=== PATIENT | male | born 1975 | race American Indian/Alaskan Native ===

== ENCOUNTER 2016-12-28 17:41 | Emergency (ER) | payer SELFPAY ==
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
[2016-12-28] MEDS ORDERED: Sodium Chloride 0.9% 10 ML Syringe FLUSH PRN (18:39)
[2016-12-28] MEDS ORDERED: Diphtheria,Pertussis(Acell),Tetanus Vaccine 0.5 ML SDV IM ONE (18:40)
[2016-12-28 18:43] LABS: CHLORIDE,CL 93 mmol/L (101-111); SODIUM,NA 129 mmol/L (135-145)
[2016-12-28] MEDS ORDERED: Sodium Chloride 0.9% 1,000 ML IV SCH (18:45)
[2016-12-28 19:01] VITALS: BP 122/82
== END 2016-12-28 19:44 ==
LOC: DL.ED 17:41
DX: S06.6X9A Traumatic subarachnoid hemorrhage with loss of consciousness of unspecified duration, initial encounter (principal); S02.0XXB Fracture of vault of skull, initial encounter for open fracture; S00.03XA Contusion of scalp, initial encounter; S60.221A Contusion of right hand, initial encounter; F10.10 Alcohol abuse, uncomplicated; F17.200 Nicotine dependence, unspecified, uncomplicated; Y04.0XXA Assault by unarmed brawl or fight, initial encounter; Z23 Encounter for immunization
CPT/HCPCS: 36415; 70450; 73130; 80053; 83615; 85025; 85610; 85730; 90471; 90715; 96365; 99285; G0480; J7030; J7050; 99284

== ENCOUNTER 2016-12-31 05:03 | Emergency (ER) | payer SELFPAY ==
[~2016-12-31 05:03] MED LIST: LORazepam 2 MG/ML Syringe IVPUSH ONE
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
[2016-12-31 05:34] LABS: CHLORIDE,CL 95 mmol/L (101-111); SODIUM,NA 129 mmol/L (135-145)
[2016-12-31 05:38] VITALS: BP 120/85
--- NOTE | 2017-02-07 23:55 | EKG ---
12/31/2016 - [facility] - EKG is sinus rhythm with a rate of 102, normal FL interval, normal axis. There is a nonspecific intraventricular conduction delay. EKG otherwise is within normal limits. [facility] /[id number]
== END 2016-12-31 06:34 ==
LOC: DL.ED 05:03
DX: G81.91 Hemiplegia, unspecified affecting right dominant side (principal); F17.200 Nicotine dependence, unspecified, uncomplicated
CPT/HCPCS: 36415; 70450; 71010; 80053; 80185; 85025; 93005; 96374; 99285; G0480; J2060; 93010

== ENCOUNTER 2020-06-06 16:10 | Emergency (ER) | payer OTHER ==
[2020-06-06] MEDS ORDERED: Propofol 1,000 MG/100 ML SDV IV ONE (16:11)
[2020-06-06 16:42] LABS: PTT,PARTIAL THROMBOPLSTIN TIME 30.4 SEC (22.0-34.0)
[2020-06-06] MEDS ORDERED: levETIRAcetam in NaCl (iso-os) 1,000 MG in Premix Bag 1 BAG IV ONE ×4 (16:50→16:51)
[2020-06-06] MEDS ORDERED: Piperacillin/Tazobactam 4.5 GM in Sodium Chloride 0.9% 100 ML IV ONE (16:51)
[2020-06-06 16:55] LABS: ANION GAP 27.4 mEq/L (7-13); CHLORIDE,CL 105 mmol/L (98-107); SODIUM,NA 148 mmol/L (136-145)
--- NOTE | 2020-06-06 16:56 | CR ---
PROCEDURE INFORMATION: Exam: XR Chest, 1 View Exam date and time: 06/06/2020 4:42 PM Age: 44 years old Clinical indication: Other: Tube polacement; Additional info: Tube placement, bagging patient TECHNIQUE: Imaging protocol: XR of the chest Views: 1 view. COMPARISON: CR Chest 1V Frontal 12/31/2016 5:30 AM FINDINGS: Tubes, catheters and devices: Endotracheal tube is present with the tip approximately 3.2 cm above the level of the marco. Nasogastric tube is present. Lungs: Patchy airspace opacities noted within the right middle, right lower and left upper lobes. Pleural space: There is no evidence of pneumothorax. Heart/Mediastinum: The heart demonstrates mild diffuse enlargement. Bones/joints: Unremarkable. IMPRESSION: 1. Endotracheal tube is present with the tip approximately 3.2 cm above the level of the marco. 2. Patchy airspace opacities noted within the right middle, right lower and left upper lobes.
[2020-06-06] MEDS ORDERED: LORazepam 2 MG/ML SDV IVPUSH ONE (17:05)
[2020-06-06] MEDS ORDERED: Midazolam 1 MG/ML 2 ML SDV IVPUSH ONE (17:05)
[2020-06-06] MEDS ORDERED: Flumazenil 0.1 MG/ML 5 ML MDV IVPUSH PRN (17:05)
[2020-06-06 17:06] LABS: BASE EXCESS ARTERIAL -13 mmol/L ((-2)-(+3)); O2 DELIVERY DEVICE VENTILATOR; O2 SATURATION ARTERIAL 91 % (95-100); PCO2 ARTERIAL 62 mmHg (35-45); PO2 ARTERIAL 93 mmHg (70-100)
[2020-06-06 17:13] VITALS: BP 154/79; PULSE 135
--- NOTE | 2020-06-06 17:43 | EDM.PDOC ---
ED HPI GENERAL MEDICAL PROBLEM - General Chief Complaint: Neuro Symptoms/Deficits Stated Complaint: BY AMBULANCE Time Seen by Provider: 06/06/20 16:20 Source of Information: Reports: EMS, EMS Notes Reviewed, Family, RN, RN Notes Reviewed History Limitations: Reports: Altered Mental Status - History of Present Illness INITIAL COMMENTS - FREE TEXT/NARRATIVE: Patient presents to ER per [facility] in status epilepticus. EMS reports the patient was actively seizing when they arrived on scene, has been continuously seizing for 30+ minutes. Initially unknown with the patient's name was. EMS states patient was at a home that was not his. Very little information given from surrounding bystanders. Daughter who presented later states she is unsure if he has been ill recently, although states she lives with him. Patient has a history of a TBI, seizures, alcohol abuse. Patient given Versed and Ativan upon arrival for seizures. Significant amount of secretions, clear with some streaking of blood from the mouth. Patient has a nasal airway and being assisted with bag valve mask upon arrival. Onset: Today, Sudden - Related Data Allergies Allergy/AdvReac Type Severity Reaction Status Date / Time No Known Allergies Allergy Verified 06/19/14 16:59 Home Meds: Home Meds . [No Known Home Meds] 06/19/14 [History] Past Medical History Genitourinary History: Reports: Other (See Below) Neurological History: Reports: Brain Injury, Concussion, Head Trauma, Seizure Psychiatric History: Reports: Addiction (alcohol) Endocrine/Metabolic History: Reports: Other (See Below) Dermatologic History: Reports: Cellulitis (with sepsis) Social & Family History - Family History Family Medical History: Noncontributory - Caffeine Use Caffeine Use: Reports: Coffee, Soda, Tea - Living Situation & Occupation Living situation: Reports: with Significant Other, with Family Occupation: Unemployed ED ROS GENERAL - Review of Systems Review Of Systems: Comprehensive ROS is negative, except as noted in HPI. - Physical Exam Exam: See Below Exam Limited By: Altered Mental Status General Appearance: Obtunded, Severe Distress Eye Exam: Bilateral Eye: PERRL (3 fixed) Ears: Normal External Exam, Hearing Grossly Normal Nose: Normal Inspection Throat/Mouth: Other (Significant amount of clear blood-streaked s putum/secretions from the mouth) Head Exam: Atraumatic, Normocephalic Neck: Normal Inspection, Supple, Non-Tender, Full Range of Motion Respiratory/Chest: Decreased Breath Sounds Cardiovascular: Normal Peripheral Pulses, No Edema, No Gallop, No JVD, No Murmur, No Rub, Tachycardia GI/Abdominal: Soft, No Organomegaly, No Distention, Abnormal Bowel Sounds (Hypoactive) (Male) Exam: Deferred Rectal (Males) Exam: Deferred Neuro Exam (Abbreviated): Unresponsive Back Exam: Normal Inspection, Full Range of Motion Extremities: Normal Inspection Skin Exam: Warm, Normal Color, No Rash, Diaphoretic Course - Vital Signs Last Recorded V/S: Last Vital Signs Temp 102 F H 06/06/20 17:11 Pulse 135 H 06/06/20 17:11 Resp BP 154/79 H 06/06/20 17:11 Pulse Ox 88 L 06/06/20 17:11 - Orders/Labs/Meds Orders: Active Orders 24 hr Category Date Time Status Blood Glucose Check, Bedside [RC] ONETIME Care 06/06/20 16:58 Active CULTURE BLOOD [BC] Stat Lab 06/06/20 16:15 Results flumazeniL [Romazicon] Med 06/06/20 17:05 Active 0.2 mg IVPUSH ASDIRECTED PRN Medication Orders Flumazenil (Romazicon) 0.2 mg IVPUSH ASDIRECTED PRN PRN Reason: Respiratory Depression Labs: Laboratory Tests 06/06/20 06/06/20 06/06/20 Range/Units 16:15 16:15 16:15 WBC 10.5 H (5.0-10.0) 10^3/uL RBC 4.88 (4.6-6.2) 10^6/uL Hgb 16.1 D (14.0-18.0) g/dL Hct 50.6 (40.0-54.0) % MCV 103.7 H D (80-100) fL MCH 33.0 (27.0-34.0) pg MCHC 31.8 L (33.0-35.0) g/dL Plt Count 182 (150-450) 10^3/uL Neut % (Auto) 23.1 L (42.2-75.2) % Lymph % (Auto) 67.6 H (20.5-50.1) % [place] % (Auto) 8.5 H (2-8) % Eos % (Auto) 0.5 L (1.0-3.0) % Baso % (Auto) 0.3 (0.0-1.0) % PT (9.0-12.0) SEC INR (0.9-1.2) APTT (22.0-34.0) SEC D-Dimer, Quantitative (0-400) ng/mL ABG pH (7.35-7.45) ABG pCO2 (35-45) mmHg ABG pO2 (70-100) mmHg ABG HCO3 (22-26) mmol/L ABG O2 Saturation (95-100) % ABG Base Excess ((-2)-(+3)) mmol/L O2 Delivery Device Sodium 148 H (136-145) mmol/L Potassium 4.4 (3.5-5.1) mmol/L Chloride 105 (98-107) mmol/L Carbon Dioxide 20 L (21-32) mmol/L Anion Gap 27.4 H (7-13) mEq/L BUN 9 (7-18) mg/dL Creatinine 1.35 H (0.70-1.30) mg/dL Est Cr Clr Drug Dosing TNP Estimated GFR (MDRD) 57 BUN/Creatinine Ratio 6.7 (No establ ref range) Glucose 244 H (74-99) mg/dL POC Glucose (70-105) mg/dl Lactic Acid 18.9 H* (0.4-2.0) mmol/L Calcium 9.4 (8.5-10.1) mg/dL Total Bilirubin 0.6 (0.2-1.0) mg/dL AST 111 H (15-37) U/L ALT 95 H (16-63) U/L Alkaline Phosphatase 134 H (46-116) U/L Ammonia (11-32) umol/L Troponin I < 0.017 (0.000-0.056) ng/mL B-Natriuretic Peptide 84 (0-100) pg/ml Total Protein 9.9 H (6.4-8.2) g/dL Albumin 4.1 (3.4-5.0) g/dL Globulin 5.8 Albumin/Globulin Ratio 0.71 Amylase 118 H (25-115) U/L Lipase 266 (73-393) U/L Urine Color (YELLOW) Urine Appearance (CLEAR) Urine pH (5.0-9.0) Ur Specific Leiter (1.005-1.030) Urine Protein (NEGATIVE) Urine Glucose (UA) (NEGATIVE) Urine Ketones (NEGATIVE) Urine Occult Blood (NEGATIVE) Urine Nitrite (NEGATIVE) Urine Bilirubin (NEGATIVE) Urine Urobilinogen (0.2-1.0) mg/dL Ur Leukocyte Esterase (NEGATIVE) U Hyaline Cast (Auto) Urine RBC /HPF Urine WBC (0-5/HPF) /HPF Ur Epithelial Cells (NOT SEEN) /HPF Amorphous Sediment (NOT SEEN) /HPF Urine Bacteria (0-FEW/HPF) /HPF Fine Granular Casts (NOT SEEN) /LPF Urine Mucus (NOT SEEN) /LPF Urine Opiates Screen (NEGATIVE) Ur Oxycodone Screen (NEGATIVE) Urine Methadone Screen (NEGATIVE) Ur Barbiturates Screen (NEGATIVE) U Tricyclic Antidepress (NEGATIVE) Ur Phencyclidine Scrn (NEGATIVE) Ur Amphetamine Screen (NEGATIVE) U Methamphetamines Scrn (NEGATIVE) Urine MDMA Screen (NEGATIVE) U Benzodiazepines Scrn (NEGATIVE) Urine Cocaine Screen (NEGATIVE) U Marijuana (THC) Screen (NEGATIVE) Ethyl Alcohol (0) mg/dL Ketones Negative SARS CoV-2 RNA Rapid NAIMA (NEGATIVE) 06/06/20 06/06/20 06/06/20 Range/Units 16:15 16:15 16:15 WBC (5.0-10.0) 10^3/uL RBC (4.6-6.2) 10^6/uL Hgb (14.0-18.0) g/dL Hct (40.0-54.0) % MCV (80-100) fL MCH (27.0-34.0) pg MCHC (33.0-35.0) g/dL Plt Count (150-450) 10^3/uL Neut % (Auto) (42.2-75.2) % Lymph % (Auto) (20.5-50.1) % [place] % (Auto) (2-8) % Eos % (Auto) (1.0-3.0) % Baso % (Auto) (0.0-1.0) % PT 11.5 (9.0-12.0) SEC INR 1.2 (0.9-1.2) APTT 30.4 (22.0-34.0) SEC D-Dimer, Quantitative 137 (0-400) ng/mL ABG pH (7.35-7.45) ABG pCO2 (35-45) mmHg ABG pO2 (70-100) mmHg ABG HCO3 (22-26) mmol/L ABG O2 Saturation (95-100) % ABG Base Excess ((-2)-(+3)) mmol/L O2 Delivery Device Sodium (136-145) mmol/L Potassium (3.5-5.1) mmol/L Chloride (98-107) mmol/L Carbon Dioxide (21-32) mmol/L Anion Gap (7-13) mEq/L BUN (7-18) mg/dL Creatinine (0.70-1.30) mg/dL Est Cr Clr Drug Dosing Estimated GFR (MDRD) BUN/Creatinine Ratio (No establ ref range) Glucose (74-99) mg/dL POC Glucose (70-105) mg/dl Lactic Acid (0.4-2.0) mmol/L Calcium (8.5-10.1) mg/dL Total Bilirubin (0.2-1.0) mg/dL AST (15-37) U/L ALT (16-63) U/L Alkaline Phosphatase (46-116) U/L Ammonia 284 H (11-32) umol/L Troponin I (0.000-0.056) ng/mL B-Natriuretic Peptide (0-100) pg/ml Total Protein (6.4-8.2) g/dL Albumin (3.4-5.0) g/dL Globulin Albumin/Globulin Ratio Amylase (25-115) U/L Lipase (73-393) U/L Urine Color (YELLOW) Urine Appearance (CLEAR) Urine pH (5.0-9.0) Ur Specific Leiter (1.005-1.030) Urine Protein (NEGATIVE) Urine Glucose (UA) (NEGATIVE) Urine Ketones (NEGATIVE) Urine Occult Blood (NEGATIVE) Urine Nitrite (NEGATIVE) Urine Bilirubin (NEGATIVE) Urine Urobilinogen (0.2-1.0) mg/dL Ur Leukocyte Esterase (NEGATIVE) U Hyaline Cast (Auto) Urine RBC /HPF Urine WBC (0-5/HPF) /HPF Ur Epithelial Cells (NOT SEEN) /HPF Amorphous Sediment (NOT SEEN) /HPF Urine Bacteria (0-FEW/HPF) /HPF Fine Granular Casts (NOT SEEN) /LPF Urine Mucus (NOT SEEN) /LPF Urine Opiates Screen (NEGATIVE) Ur Oxycodone Screen (NEGATIVE) Urine Methadone Screen (NEGATIVE) Ur Barbiturates Screen (NEGATIVE) U Tricyclic Antidepress (NEGATIVE) Ur Phencyclidine Scrn (NEGATIVE) Ur Amphetamine Screen (NEGATIVE) U Methamphetamines Scrn (NEGATIVE) Urine MDMA Screen (NEGATIVE) U Benzodiazepines Scrn (NEGATIVE) Urine Cocaine Screen (NEGATIVE) U Marijuana (THC) Screen (NEGATIVE) Ethyl Alcohol < 3 (0) mg/dL Ketones SARS CoV-2 RNA Rapid NAIMA (NEGATIVE) 06/06/20 06/06/20 06/06/20 Range/Units 16:23 16:23 16:50 WBC (5.0-10.0) 10^3/uL RBC (4.6-6.2) 10^6/uL Hgb (14.0-18.0) g/dL Hct (40.0-54.0) % MCV (80-100) fL MCH (27.0-34.0) pg MCHC (33.0-35.0) g/dL Plt Count (150-450) 10^3/uL Neut % (Auto) (42.2-75.2) % Lymph % (Auto) (20.5-50.1) % [place] % (Auto) (2-8) % Eos % (Auto) (1.0-3.0) % Baso % (Auto) (0.0-1.0) % PT (9.0-12.0) SEC INR (0.9-1.2) APTT (22.0-34.0) SEC D-Dimer, Quantitative (0-400) ng/mL ABG pH (7.35-7.45) ABG pCO2 (35-45) mmHg ABG pO2 (70-100) mmHg ABG HCO3 (22-26) mmol/L ABG O2 Saturation (95-100) % ABG Base Excess ((-2)-(+3)) mmol/L O2 Delivery Device Sodium (136-145) mmol/L Potassium (3.5-5.1) mmol/L Chloride (98-107) mmol/L Carbon Dioxide (21-32) mmol/L Anion Gap (7-13) mEq/L BUN (7-18) mg/dL Creatinine (0.70-1.30) mg/dL Est Cr Clr Drug Dosing Estimated GFR (MDRD) BUN/Creatinine Ratio (No establ ref range) Glucose (74-99) mg/dL POC Glucose (70-105) mg/dl Lactic Acid (0.4-2.0) mmol/L Calcium (8.5-10.1) mg/dL Total Bilirubin (0.2-1.0) mg/dL AST (15-37) U/L ALT (16-63) U/L Alkaline Phosphatase (46-116) U/L Ammonia (11-32) umol/L Troponin I (0.000-0.056) ng/mL B-Natriuretic Peptide (0-100) pg/ml Total Protein (6.4-8.2) g/dL Albumin (3.4-5.0) g/dL Globulin Albumin/Globulin Ratio Amylase (25-115) U/L Lipase (73-393) U/L Urine Color Yellow (YELLOW) Urine Appearance Slightly cloudy (CLEAR) Urine pH 5.5 (5.0-9.0) Ur Specific Leiter >= 1.030 (1.005-1.030) Urine Protein >=300 H (NEGATIVE) Urine Glucose (UA) Negative (NEGATIVE) Urine Ketones Negative (NEGATIVE) Urine Occult Blood Moderate H (NEGATIVE) Urine Nitrite Negative (NEGATIVE) Urine Bilirubin Negative (NEGATIVE) Urine Urobilinogen 0.2 (0.2-1.0) mg/dL Ur Leukocyte Esterase Negative (NEGATIVE) U Hyaline Cast (Auto) Few Urine RBC 5-10 H /HPF Urine WBC 0-5 (0-5/HPF) /HPF Ur Epithelial Cells Few (NOT SEEN) /HPF Amorphous Sediment Many (NOT SEEN) /HPF Urine Bacteria Rare (0-FEW/HPF) /HPF Fine Granular Casts Moderate H (NOT SEEN) /LPF Urine Mucus Few H (NOT SEEN) /LPF Urine Opiates Screen Negative (NEGATIVE) Ur Oxycodone Screen Negative (NEGATIVE) Urine Methadone Screen Negative (NEGATIVE) Ur Barbiturates Screen Negative (NEGATIVE) U Tricyclic Antidepress Negative (NEGATIVE) Ur Phencyclidine Scrn Negative (NEGATIVE) Ur Amphetamine Screen Negative (NEGATIVE) U Methamphetamines Scrn Negative (NEGATIVE) Urine MDMA Screen Negative (NEGATIVE) U Benzodiazepines Scrn Negative (NEGATIVE) Urine Cocaine Screen Negative (NEGATIVE) U Marijuana (THC) Screen Positive H (NEGATIVE) Ethyl Alcohol (0) mg/dL Ketones SARS CoV-2 RNA Rapid NAIMA Positive H (NEGATIVE) 06/06/20 06/06/20 Range/Units 16:56 17:00 WBC (5.0-10.0) 10^3/uL RBC (4.6-6.2) 10^6/uL Hgb (14.0-18.0) g/dL Hct (40.0-54.0) % MCV (80-100) fL MCH (27.0-34.0) pg MCHC (33.0-35.0) g/dL Plt Count (150-450) 10^3/uL Neut % (Auto) (42.2-75.2) % Lymph % (Auto) (20.5-50.1) % [place] % (Auto) (2-8) % Eos % (Auto) (1.0-3.0) % Baso % (Auto) (0.0-1.0) % PT (9.0-12.0) SEC INR (0.9-1.2) APTT (22.0-34.0) SEC D-Dimer, Quantitative (0-400) ng/mL ABG pH 7.09 L* (7.35-7.45) ABG pCO2 62 H (35-45) mmHg ABG pO2 93 (70-100) mmHg ABG HCO3 18.0 L (22-26) mmol/L ABG O2 Saturation 91 L (95-100) % ABG Base Excess -13 L ((-2)-(+3)) mmol/L O2 Delivery Device Ventilator Sodium (136-145) mmol/L Potassium (3.5-5.1) mmol/L Chloride (98-107) mmol/L Carbon Dioxide (21-32) mmol/L Anion Gap (7-13) mEq/L BUN (7-18) mg/dL Creatinine (0.70-1.30) mg/dL Est Cr Clr Drug Dosing Estimated GFR (MDRD) BUN/Creatinine Ratio (No establ ref range) Glucose (74-99) mg/dL POC Glucose 182 H (70-105) mg/dl Lactic Acid (0.4-2.0) mmol/L Calcium (8.5-10.1) mg/dL Total Bilirubin (0.2-1.0) mg/dL AST (15-37) U/L ALT (16-63) U/L Alkaline Phosphatase (46-116) U/L Ammonia (11-32) umol/L Troponin I (0.000-0.056) ng/mL B-Natriuretic Peptide (0-100) pg/ml Total Protein (6.4-8.2) g/dL Albumin (3.4-5.0) g/dL Globulin Albumin/Globulin Ratio Amylase (25-115) U/L Lipase (73-393) U/L Urine Color (YELLOW) Urine Appearance (CLEAR) Urine pH (5.0-9.0) Ur Specific Leiter (1.005-1.030) Urine Protein (NEGATIVE) Urine Glucose (UA) (NEGATIVE) Urine Ketones (NEGATIVE) Urine Occult Blood (NEGATIVE) Urine Nitrite (NEGATIVE) Urine Bilirubin (NEGATIVE) Urine Urobilinogen (0.2-1.0) mg/dL Ur Leukocyte Esterase (NEGATIVE) U Hyaline Cast (Auto) Urine RBC /HPF Urine WBC (0-5/HPF) /HPF Ur Epithelial Cells (NOT SEEN) /HPF Amorphous Sediment (NOT SEEN) /HPF Urine Bacteria (0-FEW/HPF) /HPF Fine Granular Casts (NOT SEEN) /LPF Urine Mucus (NOT SEEN) /LPF Urine Opiates Screen (NEGATIVE) Ur Oxycodone Screen (NEGATIVE) Urine Methadone Screen (NEGATIVE) Ur Barbiturates Screen (NEGATIVE) U Tricyclic Antidepress (NEGATIVE) Ur Phencyclidine Scrn (NEGATIVE) Ur Amphetamine Screen (NEGATIVE) U Methamphetamines Scrn (NEGATIVE) Urine MDMA Screen (NEGATIVE) U Benzodiazepines Scrn (NEGATIVE) Urine Cocaine Screen (NEGATIVE) U Marijuana (THC) Screen (NEGATIVE) Ethyl Alcohol (0) mg/dL Ketones SARS CoV-2 RNA Rapid NAIMA (NEGATIVE) Meds: Medications Generic Name Dose Route Start Last Admin Trade Name Freq PRN Reason Stop Dose Admin Flumazenil 0.2 mg 06/06/20 17:05 Romazicon IVPUSH ASDIRECTED PRN Respiratory Depression Discontinued Medications Generic Name Dose Route Start Last Admin Trade Name Freq PRN Reason Stop Dose Admin Levetiracetam 1,000 mg/ Premix 200 mls @ 800 mls/hr 06/06/20 16:50 06/06/20 17:04 IV 06/06/20 16:51 800 mls/hr ONETIME ONE Administration Piperacillin Sod/Tazobactam 100 mls @ 200 mls/hr 06/06/20 16:51 06/06/20 17:02 Sod 4.5 gm/ Sodium Chloride IV 06/06/20 17:20 200 mls/hr ONETIME ONE Administration Levetiracetam 1,000 mg/ Premix 200 mls @ 800 mls/hr 06/06/20 16:51 06/06/20 17:23 IV 06/06/20 16:52 800 mls/hr ONETIME ONE Administration Levetiracetam Confirm 06/06/20 17:06 06/06/20 17:24 Levetiracetam In Nacl (Iso-Os) Administered 06/06/20 17:07 Not Given Dose 200 mls @ as directed .ROUTE .STK-MED ONE Lorazepam 2 mg 06/06/20 17:05 06/06/20 16:20 Ativan IVPUSH 06/06/20 17:06 2 mg ONETIME ONE Administration Midazolam HCl 2 mg 06/06/20 17:05 06/06/20 16:20 Versed 1 Mg/Ml IVPUSH 06/06/20 17:06 2 mg ONETIME ONE Administration - Re-Assessments/Exams Free Text/Narrative Re-Assessment/Exam: 06/06/20 18:57 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 Patient case discussed with Dr. Reid at [facility] who agreed to accept the patient for transfer. Patient transferred via [facility]/[employer] flight [employer]. Departure - Departure Time of Disposition: 18:15 Disposition: DC/Tfer to Acute Hospital 02 Condition: Serious Clinical Impression: COVID-19, Seizure - Discharge Information *PRESCRIPTION DRUG MONITORING PROGRAM REVIEWED*: No *COPY OF PRESCRIPTION DRUG MONITORING REPORT IN PATIENT YOMAIRA: No Forms: ED Department Discharge, Interfacility Transfer EMTALA Sepsis Event Note (ED) - Evaluation Sepsis Screening Result: No Definite Risk - Focused Exam Vital Signs: Vital Signs Temp Pulse BP Pulse Ox 06/06/20 17:11 102 F H 135 H 154/79 H 88 L - My Orders Last 24 Hours: My Active Orders 06/06/20 16:15 CULTURE BLOOD [BC] Stat 06/06/20 16:58 Blood Glucose Check, Bedside [RC] ONETIME 06/06/20 17:05 flumazeniL [Romazicon] 0.2 mg IVPUSH ASDIRECTED PRN - Assessment/Plan Last 24 Hours: My Active Orders 06/06/20 16:15 CULTURE BLOOD [BC] Stat 06/06/20 16:58 Blood Glucose Check, Bedside [RC] ONETIME 06/06/20 17:05 flumazeniL [Romazicon] 0.2 mg IVPUSH ASDIRECTED PRN
[2020-06-26 10:40] LABS: ALLEN TEST LR
== END 2020-06-06 17:45 ==
LOC: DL.ED 16:10
DX: G40.909 Epilepsy, unspecified, not intractable, without status epilepticus (principal); U07.1 COVID-19
CPT/HCPCS: 31500; 36415; 36600; 51702; 71045; 80053; 80305; 80307; 81001; 82009; 82140; 82150; 82803; 82962; 83605; 83690; 83880; 84484; 85025; 85379; 85610; 85730; 87040; 87635; 96365; 96375; 96376; 99284; 99285; J1953; J2060; J2250; J2543; J2704; J7050; U0002

== ENCOUNTER 2020-12-11 14:57 | Emergency (ER) | payer MEDICAID ==
[2020-12-11 15:01] VITALS: BP 137/92; PULSE 86
[2020-12-11 16:22] LABS: ANION GAP 11.1 mEq/L (7-13); CHLORIDE,CL 101 mmol/L (98-107); SODIUM,NA 138 mmol/L (136-145)
[2020-12-11 16:26] LABS: ACETAMINOPHEN 0 ug/mL (10-30 (Therapeutic))
--- NOTE | 2020-12-11 16:33 | EDM.PDOC ---
ED HPI GENERAL MEDICAL PROBLEM - General Source of Information: Reports: Patient History Limitations: Reports: No Limitations (patient is alert and oriented x 4 ) - History of Present Illness Onset: Today Location: Reports: Head Improves with: Reports: None Worsens with: Reports: None Context: Reports: Other Associated Symptoms: Reports: Seizure <Ghazal Morgan - Last Filed: 12/11/20 17:13> <DominguezFrancisco Christoph - Last Filed: 12/11/20 18:37> - General Chief Complaint: Neurological Problem Stated Complaint: AMBULANCE Time Seen by Provider: 12/11/20 16:18 - History of Present Illness INITIAL COMMENTS - FREE TEXT/NARRATIVE: Patient is a 45 y.o. male who is brought in the ED by [facility] in status epilepticus. EMS reports c/o of seizure after being called by the patient's family. The patient has no one with him in the ED but is alert and fully oriented x4 on physical exam. The patient reports he was sitting at home watching TV when he felt tingling in his arms "before everything went black." He states he has a history of seizures but is unable to date his late seizure. He takes no medications for seizures and does not follow up with neurology or PCP. The patient denies headache, dizziness, blurred or double vision, muscle weakness, or paraesthesias. He has no cough, SOB, chest pain, abdominal pain, or changes in bowel or urinary habits. He reports alcohol use yesterday and "shared a liter of whiskey with friends." He reports a 10 year pack history and occasional marijuana use. He takes no daily medications. (Ghazal Morgan) - Related Data Allergies Allergy/AdvReac Type Severity Reaction Status Date / Time No Known Allergies Allergy Verified 06/19/14 16:59 Home Meds: Home Meds . [No Known Home Meds] 06/19/14 [History] Past Medical History Genitourinary History: Reports: Other (See Below) Neurological History: Reports: Brain Injury, Concussion, Head Trauma, Seizure Psychiatric History: Reports: Addiction Endocrine/Metabolic History: Reports: Other (See Below) Dermatologic History: Reports: Cellulitis <Ghazal Morgan - Last Filed: 12/11/20 17:13> Social & Family History - Family History Family Medical History: No Pertinent Family History - Tobacco Use Tobacco Use Status *Q: Never Tobacco User - Caffeine Use Caffeine Use: Reports: Coffee, Soda, Tea - Recreational Drug Use Recreational Drug Use: No - Living Situation & Occupation Living situation: Reports: with Significant Other, with Family Occupation: Unemployed <Ghazal Morgan - Last Filed: 12/11/20 17:13> ED ROS GENERAL - Review of Systems Review Of Systems: Comprehensive ROS is negative, except as noted in HPI. <Ghazal Morgan - Last Filed: 12/11/20 17:13> - Physical Exam Exam: See Below Exam Limited By: No Limitations General Appearance: Alert, WD/WN, No Apparent Distress Eye Exam: Bilateral Eye: EOMI, PERRL, Other (scleral icterus ) Nose: Normal Inspection, Normal Mucosa, No Blood Throat/Mouth: Normal Inspection, Normal Lips, Normal Teeth, Normal Gums, Normal Oropharynx, Normal Voice, No Airway Compromise Head Exam: Atraumatic, Normocephalic Neck: Normal Inspection, Supple, Non-Tender, Full Range of Motion Respiratory/Chest: No Respiratory Distress, Lungs Clear, Normal Breath Sounds, No Accessory Muscle Use, Chest Non-Tender Cardiovascular: Normal Peripheral Pulses, Regular Rate, Rhythm, No Edema, No Gallop, No JVD, No Murmur, No Rub GI/Abdominal: Normal Bowel Sounds, Soft, Non-Tender, No Organomegaly, No Disten tion, No Abnormal Bruit, No Mass (Male) Exam: Deferred Rectal (Males) Exam: Deferred Neuro Exam (Abbreviated): Alert, Oriented, CN II-XII Intact, Normal Cognition, Normal Gait, Normal Reflexes, No Motor/Sensory Deficits Extremities: Normal Inspection, Normal Range of Motion, Non-Tender, No Pedal Edema, Normal Capillary Refill Psychiatric: Normal Affect, Normal Mood Skin Exam: Warm, Dry, Intact, Normal Color, No Rash <Ghazal Morgan - Last Filed: 12/11/20 17:13> Course - Vital Signs Last Recorded V/S: Last Vital Signs Temp 37.0 C 12/11/20 14:59 Pulse 86 12/11/20 14:59 Resp 16 12/11/20 14:59 BP 137/92 H 12/11/20 14:59 Pulse Ox 90 L 12/11/20 14:59 - Orders/Labs/Meds Orders: Active Orders 24 hr Category Date Time Status EKG Documentation Completion [RC] STAT Care 12/11/20 15:39 Ordered DRUG SCREEN URINE BIORAD [URCHEM] Stat Lab 12/11/20 15:39 Ordered UA RFX AUGIE AND CULT IF INDIC [URIN] Urgent Lab 12/11/20 15:39 Ordered Labs: Laboratory Tests 12/11/20 12/11/20 12/11/20 Range/Units 15:51 15:51 15:51 WBC 5.5 (5.0-10.0) 10^3/uL RBC 4.41 L (4.6-6.2) 10^6/uL Hgb 14.7 (14.0-18.0) g/dL Hct 41.3 (40.0-54.0) % MCV 93.7 D (80-100) fL MCH 33.3 (27.0-34.0) pg MCHC 35.6 H (33.0-35.0) g/dL Plt Count 92 L D (150-450) 10^3/uL Neut % (Auto) 81.4 H (42.2-75.2) % Lymph % (Auto) 8.5 L (20.5-50.1) % [place] % (Auto) 8.3 H (2-8) % Eos % (Auto) 1.4 (1.0-3.0) % Baso % (Auto) 0.4 (0.0-1.0) % Sodium 138 D (136-145) mmol/L Potassium 4.1 (3.5-5.1) mmol/L Chloride 101 (98-107) mmol/L Carbon Dioxide 30 (21-32) mmol/L Anion Gap 11.1 (7-13) mEq/L BUN 15 (7-18) mg/dL Creatinine 0.96 (0.70-1.30) mg/dL Est Cr Clr Drug Dosing 105.53 mL/min Estimated GFR (MDRD) > 60 BUN/Creatinine Ratio 15.6 (No establ ref range) Glucose 109 H (74-99) mg/dL Calcium 8.6 (8.5-10.1) mg/dL Total Bilirubin 2.1 H (0.2-1.0) mg/dL AST 296 H (15-37) U/L ALT 259 H (16-63) U/L Alkaline Phosphatase 110 (46-116) U/L Troponin I < 0.017 (0.000-0.056) ng/mL Total Protein 8.0 (6.4-8.2) g/dL Albumin 3.4 (3.4-5.0) g/dL Globulin 4.6 Albumin/Globulin Ratio 0.7 Salicylates < 2.8 L (2.8-20(Therapeutic)) mg/dL Acetaminophen 0 L (10-30 (Therapeutic)) ug/mL Ethyl Alcohol < 3 (0) mg/dL Meds: Medications Discontinued Medications Generic Name Dose Route Start Last Admin Trade Name Freq PRN Reason Stop Dose Admin Multivitamins/Minerals 10 ml/ 1,011.2 mls @ 999 mls/hr 12/11/20 16:39 12/11/20 17:07 Folic Acid 1 mg/ Thiamine HCl IV 12/11/20 17:39 999 mls/hr 100 mg/ Lactated Ringer's ONETIME ONE Administration Departure <Ghazal Morgan - Last Filed: 12/11/20 17:13> - Departure Time of Disposition: 18:33 Condition: Fair - Discharge Information *PRESCRIPTION DRUG MONITORING PROGRAM REVIEWED*: Not Applicable *COPY OF PRESCRIPTION DRUG MONITORING REPORT IN PATIENT YOMAIRA: Not Applicable <Francisco Dominguez - Last Filed: 12/11/20 18:37> - Departure Disposition: Home, Self-Care 01 Clinical Impression: Withdrawal seizures Qualifiers: Complication of substance-induced condition: uncomplicated Qualified Code(s): 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 The patient was given a liter of IV fluids with multivitamins while in the ED. The patient was advised to avoid drinking alcohol. If the patient has any additional symptoms or concerns, the patient should either return to the emergency department or visit his primary care facility. Sepsis Event Note (ED) - Evaluation Sepsis Screening Result: No Definite Risk <Ghazal Morgan - Last Filed: 12/11/20 17:13> - Focused Exam Vital Signs: Vital Signs Temp Pulse Resp BP Pulse Ox 12/11/20 14:59 37.0 C 86 16 137/92 H 90 L - My Orders Last 24 Hours: My Active Orders 12/11/20 15:39 EKG Documentation Completion [RC] STAT DRUG SCREEN URINE BIORAD [URCHEM] Stat UA RFX AUGIE AND CULT IF INDIC [URIN] Urgent - Assessment/Plan Last 24 Hours: My Active Orders 12/11/20 15:39 EKG Documentation Completion [RC] STAT DRUG SCREEN URINE BIORAD [URCHEM] Stat UA RFX AUGIE AND CULT IF INDIC [URIN] Urgent
[2020-12-11] MEDS ORDERED: MVI, Adult with Vitamin K 10 ML, Folic Acid 1 MG, Thiamine 100 MG in Lactated Ringers 1... IV ONE ×4 (16:39)
== END 2020-12-11 20:05 | disposition home or self-care (01) ==
LOC: DL.ED 14:57
DX: R56.9 Unspecified convulsions (principal); F19.230 Other psychoactive substance dependence with withdrawal, uncomplicated
CPT/HCPCS: 36415; 80053; 80143; 80179; 80307; 84484; 85025; 93005; 96365; 99284; 99285; J3411; J7120; J3490

== ENCOUNTER 2021-11-10 12:27 | Emergency (ER) | payer SELFPAY ==
[2021-11-10] MEDS ORDERED: Propofol 200 MG/20 ML SDV IV ONE (12:28)
[2021-11-10] MEDS ORDERED: Rocuronium 100 MG/10 ML MDV IV ONE (12:28)
[2021-11-10] MEDS ORDERED: propofoL 100 ML IV ONE (12:28)
[2021-11-10] MEDS ORDERED: Succinylcholine 200 MG/10 ML MDV IV ONE (12:28)
[2021-11-10] MEDS ORDERED: LORazepam 2 MG/ML SDV IVPUSH ONE ×3 (12:37→12:50)
[2021-11-10] MEDS ORDERED: NACL IV ONE ×2 (12:46)
[2021-11-10] MEDS ORDERED: LEVETIRACETAM IV ONE ×2 (12:46)
[2021-11-10] MEDS ORDERED: LORazepam 2 MG/ML SDV ONE (12:49)
[2021-11-10] MEDS ORDERED: Lactated Ringers 1,000 ML IV ONE (13:11)
[2021-11-10] MEDS ORDERED: fentaNYL 100 MCG/2 ML SDV IVPUSH ONE (13:12)
[2021-11-10] MEDS ORDERED: fentaNYL 100 MCG/2 ML SDV ONE (13:12)
[2021-11-10] MEDS ORDERED: levETIRAcetam in NaCl (iso-os) 1,000 MG in Premix Bag 1 BAG IV ONE ×2 (13:17)
[2021-11-10 13:20] LABS: BASE EXCESS ARTERIAL -13 mmol/L ((-2)-(+3)); BICARBONATE,ARTERIAL 17.5 mmol/L (22-26); O2 DELIVERY DEVICE VENTILATOR; O2 SATURATION ARTERIAL 98 % (95-100); PCO2 ARTERIAL 57 mmHg (35-45); PO2 ARTERIAL 163 mmHg (70-100)
[2021-11-10 13:22] LABS: ANION GAP 25.3 mEq/L (7-13); CHLORIDE,CL 98 mmol/L (98-107); SODIUM,NA 137 mmol/L (136-145)
[2021-11-10] MEDS ORDERED: Sodium Bicarbonate 8.4% 50 MEQ/50 ML Syringe IV ONE (13:38)
[2021-11-10 14:09] LABS: PTT,PARTIAL THROMBOPLSTIN TIME 25.8 SEC (22.0-34.0)
== END 2021-11-10 14:30 ==
LOC: DL.ED 12:27
DX: U07.1 COVID-19 (principal); G40.901 Epilepsy, unspecified, not intractable, with status epilepticus; F10.10 Alcohol abuse, uncomplicated
CPT/HCPCS: 31500; 36415; 36600; 70450; 71045; 80053; 80307; 82803; 83605; 84484; 85025; 85610; 85730; 87040; 87635; 93005; 96374; 99285; J0330; J1953; J2060; J2704; J3010; J7120; U0002

== ENCOUNTER 2021-12-04 11:15 | Emergency (ER) | payer MEDICAID, OTHER ==
[2021-12-04] MEDS ORDERED: LORazepam 2 MG/ML SDV IV ONE ×2 (11:16)
[2021-12-04] MEDS ORDERED: propofoL 100 ML IV ONE (11:16)
[2021-12-04] MEDS ORDERED: Labetalol 20 MG/4 ML Syringe IV ONE (11:16)
[2021-12-04] MEDS ORDERED: Rocuronium 100 MG/10 ML MDV IV ONE (11:16)
[2021-12-04] MEDS ORDERED: levETIRAcetam in NaCl (iso-os) 100 ML IV ONE (11:16)
[2021-12-04] MEDS ORDERED: LORazepam 2 MG/ML SDV ONE ×2 (11:26→11:34)
[2021-12-04 11:57] LABS: ANION GAP 16.4 mEq/L (7-13); CHLORIDE,CL 99 mmol/L (98-107); SODIUM,NA 137 mmol/L (136-145)
[2021-12-04] MEDS ORDERED: Thiamine 200 MG/2 ML MDV ONE (12:04)
[2021-12-04] MEDS ORDERED: Folic Acid 50 MG/10 ML MDV ONE (12:05)
[2021-12-04] MEDS ORDERED: Lactated Ringers 1,000 ML ONE (12:05)
[2021-12-04] MEDS ORDERED: MVI, Adult with Vitamin K 10 ML SDV ONE (12:05)
[2021-12-04] MEDS ORDERED: Magnesium Sulfate/Water 2 GM in Premix Bag 1 BAG IV ONE (12:07)
[2021-12-04] MEDS ORDERED: Midazolam 50 MG in Sodium Chloride 0.9% 40 ML IV SCH ×2 (12:15→13:15)
[2021-12-04] MEDS ORDERED: fentaNYL 500 MCG in Sodium Chloride 0.9% 50 ML IV SCH (12:15)
[2021-12-04] MEDS ORDERED: propofoL 100 ML IV SCH (12:15)
[2021-12-04] MEDS ORDERED: Midazolam 5 MG/ML 10 ML MDV IV SCH (12:15)
[2021-12-04 12:30] LABS: MDMA (ECSTASY), URINE POSITIVE (NEGATIVE); METHADONE,URINE NEGATIVE (NEGATIVE); METHAMPHETAMINES,URINE POSITIVE (NEGATIVE); OPIATES,URINE NEGATIVE (NEGATIVE)
[2021-12-04] MEDS ORDERED: Labetalol 20 MG/4 ML Syringe ONE (12:30)
[2021-12-04 12:31] LABS: AMPHETAMINES,URINE POSITIVE (NEGATIVE); BARBITURATES,URINE POSITIVE (NEGATIVE); BENZODIAZEPINE,URINE POSITIVE (NEGATIVE); OXYCODONE,URINE NEGATIVE (NEGATIVE); PHENCYCLIDINE,URINE NEGATIVE (NEGATIVE); TCA,URINE NEGATIVE (NEGATIVE)
[2021-12-04] MEDS ORDERED: PHENobarbital Sodium 65 MG/ML SDV IVPUSH ONE (12:53)
[2021-12-04] MEDS ORDERED: SODIUM CHLORIDE 0.9% IV ONE (13:15)
[2021-12-04] MEDS ORDERED: PHENOBARBITAL SODIUM IV ONE (13:15)
[2021-12-04] MEDS ORDERED: fentaNYL 100 MCG/2 ML SDV ONE (13:18)
[2021-12-04 14:02] VITALS: BP 140/103; PULSE 133
[2021-12-04] MEDS ORDERED: MVI, Adult with Vitamin K 10 ML, Folic Acid 1 MG, Thiamine 100 MG in Lactated Ringers 1... IV ONE ×4 (16:30)
== END 2021-12-04 11:57 ==
LOC: DL.ED 11:15
DX: G40.901 Epilepsy, unspecified, not intractable, with status epilepticus (principal); E83.42 Hypomagnesemia
CPT/HCPCS: 31500; 36415; 43752; 70450; 71045; 72125; 80053; 80305-QW; 80307; 81001; 82140; 83605; 83735; 84484; 85025; 86140; 96365; 96366; 96367; 96368; 96375; 99285-25; J1953; J2060; J2250; J2560; J2704; J3010; J3411; J3475; J3490; J7120

== ENCOUNTER 2022-01-20 09:47 | Emergency (ER) | payer OTHER, MEDICAID ==
[2022-01-20] MEDS ORDERED: Propofol 200 MG/20 ML SDV IV ONE (09:48)
[2022-01-20] MEDS ORDERED: Rocuronium 100 MG/10 ML MDV IV ONE (09:48)
[2022-01-20] MEDS ORDERED: levETIRAcetam in NaCl (iso-os) 1,500 MG in Premix Bag 1 BAG IV ONE ×4 (10:01→10:55)
[2022-01-20] MEDS ORDERED: MVI, Adult with Vitamin K 10 ML, Thiamine 100 MG, Folic Acid 1 MG in Lactated Ringers 1... IV ONE ×4 (10:01)
[2022-01-20] MEDS ORDERED: levETIRAcetam in NaCl (iso-os) 100 ML ONE (10:03)
[2022-01-20] MEDS ORDERED: Sodium Chloride 0.9% 10 ML Syringe FLUSH PRN (10:05)
[2022-01-20 10:08] VITALS: BP 148/85; PULSE 145
[2022-01-20 10:51] LABS: PTT,PARTIAL THROMBOPLSTIN TIME 22.7 SEC (22.0-34.0)
[2022-01-20 11:00] LABS: AMPHETAMINES,URINE NEGATIVE (NEGATIVE); BARBITURATES,URINE POSITIVE (NEGATIVE); BENZODIAZEPINE,URINE NEGATIVE (NEGATIVE); MDMA (ECSTASY), URINE NEGATIVE (NEGATIVE); METHADONE,URINE NEGATIVE (NEGATIVE); METHAMPHETAMINES,URINE POSITIVE (NEGATIVE); OPIATES,URINE NEGATIVE (NEGATIVE); OXYCODONE,URINE NEGATIVE (NEGATIVE); PHENCYCLIDINE,URINE NEGATIVE (NEGATIVE); TCA,URINE NEGATIVE (NEGATIVE)
[2022-01-20 11:03] LABS: ANION GAP 9.6 mEq/L (7-13); CHLORIDE,CL 101 mmol/L (98-107); SODIUM,NA 135 mmol/L (136-145)
[2022-01-20] MEDS ORDERED: Magnesium Sulfate/Water 2 GM in Premix Bag 1 BAG IV ONE (11:10)
[2022-01-20] MEDS ORDERED: Sodium Chloride 0.9% 1,000 ML IV ONE (11:43)
[2022-01-20] MEDS ORDERED: Propofol 200 MG/20 ML SDV IVPUSH ONE (11:50)
[2022-01-20] MEDS: LORazepam 2 MG/ML SDV ONE ×2 (11:52→11:53)
[2022-01-20] MEDS: Magnesium Sulfate/Water 2 GM in Premix Bag 1 BAG IV ONE (11:55)
[2022-01-20 11:59] LABS: O2 DELIVERY DEVICE NON REBR MASK
[2022-01-20] MEDS ORDERED: propofoL 100 ML IV SCH (12:00)
[2022-01-20 12:01] LABS: PCO2 ARTERIAL 68 mmHg (35-45)
[2022-01-20 12:02] LABS: ALLEN TEST PERFORMED; BASE EXCESS ARTERIAL -1 mmol/L ((-2)-(+3)); O2 SATURATION ARTERIAL 89 % (95-100); PO2 ARTERIAL 70 mmHg (70-100)
[2022-01-20 13:04] LABS: CORONAVIRUS COVID-19 NAA NEGATIVE (NEGATIVE); RESPIRATORY SYNCYTIAL VIR NAA NEGATIVE (NEGATIVE)
[2022-01-20] MEDS ORDERED: Lidocaine 1% 30 ML SDV INJECT ONE (13:13)
[2022-01-20] MEDS ORDERED: Sodium Chloride 0.9% 100 ML ONE (13:26)
[2022-01-20] MEDS: Piperacillin/Tazobactam 3.375 GM in Sodium Chloride 0.9% 100 ML IV ONE ×2 (13:33→13:34)
== END 2022-01-20 13:58 ==
LOC: DL.ED 09:47
DX: G40.401 Other generalized epilepsy and epileptic syndromes, not intractable, with status epilepticus (principal); F10.10 Alcohol abuse, uncomplicated; F19.90 Other psychoactive substance use, unspecified, uncomplicated; E83.42 Hypomagnesemia; Z20.822 Contact with and (suspected) exposure to COVID-19; Z87.820 Personal history of traumatic brain injury
CPT/HCPCS: 0241U; 31500; 36415; 36600; 70450; 71045; 72125; 80053; 80305-QW; 80307; 81001; 82009; 82140; 82550; 82803; 82947; 83605; 83735; 84443; 84484; 85025; 85610; 85730; 86140; 87040; 93005; 93010; 96365; 96367; 96375; 96376; 99285; 99285-25; J1953; J2060; J2543; J2704; J3360; J3411; J3475; J3490; J7030; J7120

== ENCOUNTER 2022-09-05 09:24 | Emergency (ER) | payer MEDICAID ==
[2022-09-05 08:58] LABS: CHLORIDE,CL 95 mmol/L (98-107); SODIUM,NA 136 mmol/L (136-145)
[2022-09-05 09:05] LABS: ACETAMINOPHEN 0 ug/mL (10-30 (Therapeutic)); ESTIMATED GFR 57 mL/min (>=60)
[2022-09-05 09:06] LABS: METHAMPHETAMINES,URINE POSITIVE (NEGATIVE)
[2022-09-05 09:07] LABS: AMPHETAMINES,URINE NEGATIVE (NEGATIVE); BARBITURATES,URINE NEGATIVE (NEGATIVE); BENZODIAZEPINE,URINE NEGATIVE (NEGATIVE); MDMA (ECSTASY), URINE NEGATIVE (NEGATIVE); METHADONE,URINE NEGATIVE (NEGATIVE); OPIATES,URINE NEGATIVE (NEGATIVE); OXYCODONE,URINE NEGATIVE (NEGATIVE); PHENCYCLIDINE,URINE NEGATIVE (NEGATIVE); TCA,URINE NEGATIVE (NEGATIVE)
[2022-09-05 09:14] LABS: RESPIRATORY SYNCYTIAL VIR NAA NEGATIVE (NEGATIVE)
[2022-09-05 09:21] LABS: CORONAVIRUS COVID-19 NAA POSITIVE (NEGATIVE)
[~2022-09-05 09:24] MED LIST changes: -LORazepam 2 MG/ML Syringe IVPUSH ONE; +MANNITOL IV SCH; +levETIRAcetam in NaCl (iso-os) 1,000 MG in Premix Bag 1 BAG IV ONE; +levETIRAcetam in NaCl (iso-os) 100 ML ONE
[2022-09-05] MEDS ORDERED: Rocuronium 100 MG/10 ML MDV IV ONE (09:25)
[2022-09-05] MEDS ORDERED: propofoL 100 ML IV ONE (09:25)
[2022-09-05] MEDS ORDERED: Propofol 200 MG/20 ML SDV IV ONE (09:25)
[2022-09-05] MEDS ORDERED: Sodium Chloride 0.9% 250 ML IV ONE (09:25)
[2022-09-05] MEDS ORDERED: Sodium Chloride 0.9% 10 ML Syringe IV ONE (09:25)
== END 2022-09-05 10:35 ==
LOC: DL.ED 09:24
DX: U07.1 COVID-19 (principal); I61.9 Nontraumatic intracerebral hemorrhage, unspecified
CPT/HCPCS: 0241U; 31500; 36415; 70450; 71045; 72125; 80053; 80143; 80177; 80179; 80305; 80307; 81001; 82140; 82150; 83605; 83690; 83735; 84484; 85025; 85610; 93005; 96374; 99285; J1953; J2704; J3490; J7050